=== PATIENT | female | born 1945 | race Caucasian/White ===

== ENCOUNTER 2019-11-09 16:39 | Emergency (ER) | payer MEDICARE, OTHER ==
--- NOTE | 2019-11-09 17:46 | RADIOLOGY REPORT (SQ) ---
EXAM DESCRIPTION: CT HEAD WITHOUT COMPLETED DATE/TIME: 11/09/2019 5:23 pm REASON FOR STUDY: FALL, FACIAL TRAUMA COMPARISON: None. TECHNIQUE: Axial images acquired through the brain without intravenous contrast. Images reviewed wi th bone, brain and subdural windows. Additional sagittal and coronal reconstructions were generated. Images stored on PACS. All CT scanners at this facility use dose modulation, iterative reconstruction, and/or weight based d osing when appropriate to reduce radiation dose to as low as reasonably achievable (ALARA). [facility]: Dose Right [facility]: CareDose [facility]: Dose Right [facility]: Teradose 4D [facility]: Smart Dialogic RADIATION DOSE: CT Rad equipment meets quality standard of care and radiation dose reduction techniq ues were employed. CTDIvol: 53.2 mGy. DLP: 991 mGy-cm. mGy. LIMITATIONS: None. FINDINGS: VENTRICLES: Normal size and contour. CEREBRUM: No masses. No hemorrhage. No midline shift. No evidence for acute infarction. Normal gra y/white matter differentiation. No areas of low density in the white matter. CEREBELLUM: No masses. No hemorrhage. No alteration of density. No evidence for acute infarction. EXTRAAXIAL SPACES: No fluid collections. No masses. ORBITS AND GLOBE: No intra- or extraconal masses. Normal contour of globe without masses. CALVARIUM: No fracture. PARANASAL SINUSES: No fluid or mucosal thickening. SOFT TISSUES: No mass or hematoma. OTHER: No other significant finding. IMPRESSION: NORMAL BRAIN CT WITHOUT CONTRAST. EVIDENCE OF ACUTE STROKE: NO. COMMENT: Quality ID # [id number]: Final reports with documentation of one or more dose reduction techniques (e.g., Automated exposure control, adjustment of the mA and/or kV according to patient size, use of iterative reconstruction technique) TECHNICAL DOCUMENTATION: JOB ID: [id number] 2010 [employer]- All Rights Reserved Reading location - IP/workstation name: [email or web address]
--- NOTE | 2019-11-09 18:01 | ER Document Report ---
HPI - HPI Time Seen by Provider: 11/09/19 16:51 Pain Level: 3 Notes: 73-year-old female patient presenting to the emergency department chief complaint of laceration. Patient has a laceration in her right eyebrow. She states that her was benzene washer ring and she tripped over the hose. She states she fell and strike her head on the concrete. She denies any loss of consciousness. She is not on any blood thinners. Tdap up-to-date as of 2 years ago. - CONSTITUTIONAL Constitutional: DENIES: Fever, Chills Past Medical History - General Information source: Patient - Social History Smoking Status: Never Smoker Family History: Reviewed & Not Pertinent Patient has suicidal ideation: No Patient has homicidal ideation: No - Medical History Medical History: Negative Past Surgical History: Reports: Hx Orthopedic Surgery - Immunizations Immunizations up to date: Yes Vertical Provider Document - CONSTITUTIONAL Notes: PHYSICAL EXAMINATION: GENERAL: Well-appearing, well-nourished and in no acute distress. HEAD: Atraumatic, normocephalic. EYES: Pupils equal round extraocular movements intact, conjunctiva are normal. ENT: Nares patent NECK: Normal range of motion LUNGS: No respiratory distress Musculoskeletal: Normal range of motion NEUROLOGICAL: Normal speech, normal gait. PSYCH: Normal mood, normal affect. SKIN: 2 cm laceration to the right eyebrow, approximates well, superficial and no active bleeding noted. - INFECTION CONTROL TRAVEL OUTSIDE OF THE [place] IN LAST 30 DAYS: No Course - Re-evaluation Re-evalutation: Patient appears well, nontoxic, vital signs within normal limits. CT head negative. Patient not on any blood thinners. Laceration repaired with Dermabond. Patient tolerated well. Patient will be discharged home at this time. - Vital Signs Vital signs: Temp Pulse Resp BP Pulse Ox 98.7 F 105 H 16 167/77 H 97 11/09/19 16:44 11/09/19 16:44 11/09/19 16:44 11/09/19 16:44 11/09/19 16:44 Procedures - Laceration/Wound Repair Facial laceration Wound length (cm): 2 Wound's Depth, Shape: Superficial Laceration pre-procedure: Sterile PPE donned Wound Repaired With: Dermabond Discharge - Discharge Clinical Impression: Facial laceration Qualifiers: Encounter type: initial encounter Qualified Code(s): S01.81XA - Laceration without foreign body of other part of head, initial encounter Condition: Stable Disposition: HOME, SELF-CARE Additional Instructions: Dermabond (Skin Adhesive Closure) Skin adhesive (such as Dermabond) is a quick-drying glue that remains slightly flexible while it holds wound edges together. It can substitute for stitches on some cuts. The film will usually fall off the skin after 5 to 10 days. Keep the wound area clean and dry. Do not soak or scrub the wound. Don't swim. You can shower briefly after 24 hours. Gently blot the area dry with a soft towel. Don't apply ointments. If there is a dressing, change it immediately if it gets wet. Do not place tape directly over the adhesive film, because the tape may pull the film off your skin as you remove it. Don't bump the wound area. If there's risk of injury, keep the area well- padded. Avoid stretching of the skin. Do not scratch or pick at the adhesive film. Avoid prolonged exposure to sunlight or tanning lamps. Return if there is increasing pain, swelling, redness, or drainage, or if the wound edges seem to open or separate. Referrals: SUNITA OLMSTEAD MD [Primary Care Provider] - Follow up as needed
[2019-11-09 18:16] VITALS: BP 142/92
== END 2019-11-09 18:09 | disposition home or self-care (01) ==
LOC: ER 16:39
PROC: 0HQ1XZZ Repair Face Skin, External Approach (ICD-10-PCS; principal; 2019-11-09)
DX: S01.81XA Laceration without foreign body of other part of head, initial encounter (principal); W18.09XA Striking against other object with subsequent fall, initial encounter
CPT/HCPCS: 70450; 99283

== ENCOUNTER → 2020-01-17 | Outpatient (CLI) | payer MEDICARE, OTHER ==
--- NOTE | 2020-01-17 14:32 | RADIOLOGY REPORT (SQ) ---
EXAM DESCRIPTION: MRI LUMBAR SPINE WITHOUT IMAGES COMPLETED DATE/TIME: 01/17/2020 11:12 am REASON FOR STUDY: M54.5 LOW BACK PAIN M54.5 LOW BACK PAIN COMPARISON: None. TECHNIQUE: Sagittal and Axial imaging includes T1, T2, STIR and gradient echo sequences. Coronal T2/ HASTE imaging. LIMITATIONS: None. FINDINGS: VISUALIZED UPPER ABDOMEN: Limited evaluation. No acute or suspicious findings suggested. SEGMENTATION: No transitional anatomy. The lowest well-developed disc space is labeled L5-S1. ALIGNMENT: Anatomic. VERTEBRAE: Intact. BONE MARROW: Normal. No marrow replacement or reactive changes. DISC SIGNAL: Decreased T2 signal throughout the lumbar spine in the disc spaces. There is narrowing of the L2-3 disc space. There is narrowing at L4-5 and L5-S1. POSTERIOR ELEMENTS: Generally intact. No pars defect evident. HARDWARE: None in the spine. CORD AND CONUS: Normal in size and signal intensity. Conus at the T12-L1 level. SOFT TISSUES: No aortic aneurysm seen. No bulky retroperitoneal adenopathy or mass. No paraspinal mas s or fluid. T12-L1: No significant spinal stenosis or exit foraminal stenosis. L1-L2: Shallow broad-based disc bulge with no central canal or foraminal stenosis. L2-L3: Circumferential disc bulge with moderate central canal stenosis and foraminal stenoses. L3-L4: No significant spinal stenosis or exit foraminal stenosis. L4-L5: No significant spinal stenosis or exit foraminal stenosis. L5-S1: No significant spinal stenosis or exit foraminal stenosis. LOWER THORACIC: Incompletely imaged. No stenosis seen. SACRUM: Visualized upper sacrum intact. OTHER: No other significant findings. IMPRESSION: Multilevel degenerative disc disease. Shallow disc bulge at L1-[address] enoses. Circumferential disc bulge at L2-3 with moderate central canal stenosis and moderate foramin al stenoses. TECHNICAL DOCUMENTATION: JOB ID: [id number] 2010 [employer]- All Rights Reserved Reading location - IP/workstation name: [email or web address]
== END ==
LOC: WI 10:25
PROVIDERS: ATTEND Physician Assistant
DX: M51.36 Other intervertebral disc degeneration, lumbar region (principal); M48.061 Spinal stenosis, lumbar region without neurogenic claudication; M54.5 Low back pain
CPT/HCPCS: 72148

== ENCOUNTER → 2020-02-12 | Outpatient (CLI) | payer MEDICARE, OTHER ==
--- NOTE | 2020-02-13 08:07 | RADIOLOGY REPORT (SQ) ---
EXAM DESCRIPTION: MRI RT LOWER JOINT WITHOUT IMAGES COMPLETED DATE/TIME: 02/12/2020 8:30 am REASON FOR STUDY: PAIN IN RIGHT HIP (M25.551) M25.551 PAIN IN RIGHT HIP COMPARISON: None. TECHNIQUE: Non Arthrogram noncontrast MRI righthip images acquired and stored on PACS. Multiplanar i mages to include fat sensitive sequences as T1, fluid sensitive sequences as T2/STIR and gradient ech o sequences. Large FOV fat and fluid sensitive sequences include pelvis and opposite hip. LIMITATIONS: None. FINDINGS: BONE CORTEX AND MARROW: No generalized marrow replacement. No occult fracture. No worriso me bone lesions. Right HIP: FEMORAL HEAD: No occult fracture. No osteophytes or subchondral cysts. Normal sphericity of femoral h ead/neck junction. No acetabular dysplasia. No evidence femoroacetabular impingement. No significant effusion. ACETABULUM: No acetabular dysplasia. 12 mm subcortical cyst, posterior rim of right acetabulum, best shown on axial series 10, image 16. LABRUM: Delamination of the labrum on coronal images 10-14, with high signal within the labrum and be tween the labrum and the acetabular attachment. No paralabral cysts. TROCHANTER: Trace trochanteric bursal effusion. No edema/fluid at the insertions of the gluteus medi us and gluteus minimus. Left HIP: Magnetic artifact from hip replacement PELVIS, LOWER LUMBAR SPINE, SACROILIAC JOINTS: PELVIS : No insufficiency/stress fractures. No significant degenerative changes. Sacroiliac joints normal. L SPINE: Advanced multilevel degenerative disc change lumbar spine. MUSCLES AND SOFT TISSUES: Adductors and piriformis normal. Abductors and greater trochanteric bursa n ormal without edema or fluid. Iliopsoas bursa without fluid. Hamstring attachments demonstrate very m ild increased STIR signal on coronal images 18 and 19. PELVIC SOFT TISSUES: No masses or adenopathy. Small fatty bilateral inguinal hernias on coronal imag e 1 SCIATIC NERVE: Identified, without masses or abnormal signal. OTHER: No other significant finding. IMPRESSION: Right hip labral degeneration. Subcortical cyst, posterior right acetabulum Trace fluid right trochanteric bursa Left hip replacement, magnetic artifact TECHNICAL DOCUMENTATION: JOB ID: [id number] 2010 [employer]- All Rights Reserved Reading location - IP/workstation name: [email or web address]
== END ==
LOC: RAD 07:36
PROVIDERS: ATTEND Physician Assistant
DX: M25.551 Pain in right hip (principal)

== ENCOUNTER → 2020-02-21 | Day surgery (SDC) | payer MEDICARE, OTHER ==
[~2020-02-21] MED LIST: BUPIVACAINE HCL 0.5 % INJ/PF 30 ML SDV ONE; METHYLPREDNISOLONE ACETATE INJ 80 MG/1 ML VIAL ONE
--- NOTE | 2020-02-21 13:29 | RADIOLOGY REPORT (SQ) ---
EXAM DESCRIPTION: INJECT/ASPIR HIP/SHLDR/KNEE; FLUORO/NEEDLE PLACEMENT IMAGES COMPLETED DATE/TIME: 02/21/2020 1:15 pm REASON FOR STUDY: PAIN IN RIGHT HIP M25.551 PAIN IN RIGHT HIP COMPARISON: None. FLUOROSCOPY TIME: 4 SECONDS OF FLUOROSCOPY WAS USED. 1 images saved to PACS. LIMITATIONS: None. PROCEDURE: SITE OF INJECTION: Right hip LOCALIZING CONTRAST TYPE AND DOSE: 1 mL Omnipaque 300 MEDICATION TYPE AND DOSE: 4 mL Sensorcaine and 80 mg Depo-Medrol Using local anesthesia and sterile technique with fluoroscopic guidance, the needle was advanced into the joint. Iodinated contrast was injected to verify intraarticular placement. This was followed by therapeutic injection of the indicated medications. The needle was removed. There were no immediat e complications. Preprocedure pain level: 5/5. Postprocedure pain level: 0/5. IMPRESSION: THERAPEUTIC INJECTION OF THE RIGHT HIP JOINT ABOVE. COMMENT: Patient medication list reviewed: Yes- Quality ID# [id number]:Eligible professional attests to doc umenting in the medical record they obtained, updated, or reviewed the patient's current medications. . Quality ID 145: Final reports for procedures using fluoroscopy that document radiation exposure evon romeo, or exposure time and number of fluorographic images (if radiation exposure indices are not avail able) TECHNICAL DOCUMENTATION: JOB ID: [id number] 2010 [employer]- All Rights Reserved Reading location - IP/workstation name: [email or web address] [id number]
--- NOTE | 2020-02-21 13:29 | RADIOLOGY REPORT (SQ) ---
EXAM DESCRIPTION: INJECT/ASPIR HIP/SHLDR/KNEE; FLUORO/NEEDLE PLACEMENT IMAGES COMPLETED DATE/TIME: 02/21/2020 1:15 pm REASON FOR STUDY: PAIN IN RIGHT HIP M25.551 PAIN IN RIGHT HIP COMPARISON: None. FLUOROSCOPY TIME: 4 SECONDS OF FLUOROSCOPY WAS USED. 1 images saved to PACS. LIMITATIONS: None. PROCEDURE: SITE OF INJECTION: Right hip LOCALIZING CONTRAST TYPE AND DOSE: 1 mL Omnipaque 300 MEDICATION TYPE AND DOSE: 4 mL Sensorcaine and 80 mg Depo-Medrol Using local anesthesia and sterile technique with fluoroscopic guidance, the needle was advanced into the joint. Iodinated contrast was injected to verify intraarticular placement. This was followed by therapeutic injection of the indicated medications. The needle was removed. There were no immediat e complications. Preprocedure pain level: 5/5. Postprocedure pain level: 0/5. IMPRESSION: THERAPEUTIC INJECTION OF THE RIGHT HIP JOINT ABOVE. COMMENT: Patient medication list reviewed: Yes- Quality ID# [id number]:Eligible professional attests to doc umenting in the medical record they obtained, updated, or reviewed the patient's current medications. . Quality ID 145: Final reports for procedures using fluoroscopy that document radiation exposure evon romeo, or exposure time and number of fluorographic images (if radiation exposure indices are not avail able) TECHNICAL DOCUMENTATION: JOB ID: [id number] 2010 [employer]- All Rights Reserved Reading location - IP/workstation name: [email or web address] [id number]
== END ==
LOC: RAD 12:43
PROVIDERS: ATTEND Physician Assistant
DX: M25.551 Pain in right hip (principal)
CPT/HCPCS: 20610; 77002; J3490; J1040